=== PATIENT | male | born 1990 | race Caucasian/White ===

== ENCOUNTER 2017-05-31 17:45 | Emergency (ER) | payer BC ==
[~2017-05-31] VITALS: Wt 108.9 kg
[~2017-05-31 17:45] MED LIST: MOTRIN800 MG PO; NKHM; ROBITUSSIN AC 110 ML PO; ZITHROMAX250 MG PO
[2017-05-31 17:50] VITALS: BP 160/81
[2017-05-31 18:23] LABS: BILIRUBIN NEGATIVE (NEGATIVE); BLOOD TRACE-INTACT (NEGATIVE); CLARITY CLEAR (CLEAR); COLOR YELLOW (YELLOW); GLUCOSE NEGATIVE (NEGATIVE); KETONE NEGATIVE (NEGATIVE); LEUKO ESTERASE NEGATIVE (NEGATIVE); NITRITE NEGATIVE (NEGATIVE); SPECIFIC GRAVITY 1.025 (1.005-1.030); UROBILINOGEN 0.2 E.U./dl (0.2-1.0)
[2017-05-31 18:29] LABS: BACTERIA TRACE; WBC 0-2 wbc/hpf (0-5)
== END 2017-05-31 19:37 | disposition home or self-care (01) ==
LOC: ED 17:45
PROVIDERS: Nurse Practitioner Family
DX: Z11.3 Encounter for screening for infections with a predominantly sexual mode of transmission (principal)

== ENCOUNTER → 2024-04-14 | Outpatient (CLI) | payer BC | END | disposition home or self-care (01) | LOC: US 10:00 | PROVIDERS: ATTEND Family Medicine | DX: N43.3 Hydrocele, unspecified (principal); N50.811 Right testicular pain ==